=== PATIENT | female | born 2005 | race Caucasian/White ===

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

== ENCOUNTER → 2023-03-26 | Outpatient (REF) | payer OTHER ==
[2023-03-26 19:01] LABS: HCG, SERUM QUALITATIVE NEGATIVE (NEGATIVE)
== END ==
LOC: M LAB REF 16:26
PROVIDERS: ATTEND Nurse Practitioner Family
DX: N92.6 Irregular menstruation, unspecified (principal); E66.9 Obesity, unspecified

== ENCOUNTER → 2023-05-25 | Outpatient (REF) | payer OTHER ==
[2023-05-25 20:09] LABS: BASO # 0.1 10^3/uL (0.0-0.2); BASO % 0.9 % (0.0-1.0); EOS # 0.3 10^3/uL (0.0-0.5); EOS % 2.9 % (0.0-3.0); HEMATOCRIT 39.5 % (36.0-47.0); HEMOGLOBIN 12.3 g/dl (12.0-15.5); LYMPH # 3.6 10^3/uL (1.5-5.0); LYMPH % 33.9 % (24.0-44.0); MEAN CORPUSCULAR HEMOGLOBIN 23.4 pg (27.0-33.0); MEAN CORPUSCULAR HGB CONC 31.1 g/dl (32.0-36.5); MEAN CORPUSCULAR VOLUME 75.1 fl (80.0-96.0); MONO # 0.6 10^3/uL (0.0-0.8); MONO % 5.5 % (2.0-8.0); NEUTROPHILS # 5.9 10^3/uL (1.5-8.5); NEUTROPHILS % 56.4 % (36.0-66.0); PLATELET COUNT, AUTOMATED 334 10^3/uL (150-450); RED BLOOD COUNT 5.26 10^6/uL (4.00-5.40); WHITE BLOOD COUNT 10.5 10^3/uL (4.0-10.0)
== END ==
LOC: M LAB REF 19:33
PROVIDERS: ATTEND Nurse Practitioner Family
DX: E55.9 Vitamin D deficiency, unspecified (principal); D50.9 Iron deficiency anemia, unspecified

== ENCOUNTER → 2023-07-14 | Outpatient (CLI) | payer OTHER | LOC: M RAD 18:00 | PROVIDERS: ATTEND Physician Assistant | DX: M25.571 Pain in right ankle and joints of right foot (principal) ==

== ENCOUNTER 2023-08-15 11:53 | Emergency (ER) | payer OTHER ==
[~2023-08-15] VITALS: Ht 162.6 cm; Wt 129.3 kg
[2023-08-15] MEDS ORDERED: IBUPROFEN 600MG TAB PO ONE (12:30)
[2023-08-15 13:02] LABS: BASO # 0.1 10^3/uL (0.0-0.2); EOS # 0.3 10^3/uL (0.0-0.5); EOS % 4.9 % (0.0-3.0); HEMATOCRIT 39.6 % (36.0-47.0); HEMOGLOBIN 12.6 g/dl (12.0-15.5); LYMPH # 1.9 10^3/uL (1.5-5.0); LYMPH % 31.6 % (24.0-44.0); MEAN CORPUSCULAR HGB CONC 31.8 g/dl (32.0-36.5); MEAN CORPUSCULAR VOLUME 75.3 fl (80.0-96.0); MONO # 0.6 10^3/uL (0.0-0.8); MONO % 10.1 % (2.0-8.0); NEUTROPHILS # 3.1 10^3/uL (1.5-8.5); NEUTROPHILS % 52.1 % (36.0-66.0); PLATELET COUNT, AUTOMATED 246 10^3/uL (150-450); RED BLOOD COUNT 5.26 10^6/uL (4.00-5.40); WHITE BLOOD COUNT 5.9 10^3/uL (4.0-10.0)
[2023-08-15 13:30] LABS: HCG, SERUM QUALITATIVE NEGATIVE (NEGATIVE)
[2023-08-15 13:54] VITALS: BP 121/84; TEMP 97.8; O2SAT 97
== END 2023-08-15 13:55 | disposition home or self-care (01) ==
LOC: M ED 11:53
DX: N93.8 Other specified abnormal uterine and vaginal bleeding (principal); Z79.899 Other long term (current) drug therapy; Z88.2 Allergy status to sulfonamides

== ENCOUNTER 2024-04-30 14:10 | Inpatient (IN) | payer OTHER ==
[~2024-04-30] VITALS: Ht 162.6 cm; Wt 117.4 kg
[~2024-04-30 14:10] MED LIST changes: -FERR325T3; +FERR325T3 PO; +ONDA-282 PO; +ONDA-282 SL; -ONDA4TAB6 PO; -ONDA4TAB6 SL; -VITA200032; +VITA200032 PO
[2024-04-30 15:02] LABS: HEMATOCRIT 37.2 % (36.0-47.0); HEMOGLOBIN 11.5 g/dl (12.0-15.5); MEAN CORPUSCULAR HEMOGLOBIN 23.2 pg (27.0-33.0); MEAN CORPUSCULAR HGB CONC 30.9 g/dl (32.0-36.5); PLATELET COUNT, AUTOMATED 301 10^3/uL (150-450); RED BLOOD COUNT 4.96 10^6/uL (4.00-5.40); WHITE BLOOD COUNT 9.3 10^3/uL (4.0-10.0)
[2024-04-30 15:27] LABS: AMPHETAMINES LEVEL URINE NEGATIVE (NEGATIVE); BARBITURATES URINE NEGATIVE (NEGATIVE); BENZODIAZEPINES URINE NEGATIVE (NEGATIVE); CANNABINOIDS URINE NEGATIVE (NEGATIVE); COCAINE METABOLITE URINE NEGATIVE (NEGATIVE); METHADONE URINE NEGATIVE (NEGATIVE); OPIATES URINE NEGATIVE (NEGATIVE); PHENCYCLIDINE URINE NEGATIVE (NEGATIVE)
[2024-04-30 15:29] LABS: ETHYL ALCOHOL (ETHANOL) 0.006 % (0.000-0.010)
[2024-04-30 15:31] LABS: ALBUMIN 3.7 G/DL (3.2-5.2); ALKALINE PHOSPHATASE 95 U/L (46-116); ALT/SGPT 18 U/L (7.0-40); AST/SGOT 11 U/L (<34); BILIRUBIN,DIRECT < 0.1 MG/DL (<0.4); BILIRUBIN,TOTAL 0.3 MG/DL (0.3-1.2); BLOOD UREA NITROGEN 10 MG/DL (9-23); CALCIUM LEVEL 9.4 MG/DL (8.5-10.1); CARBON DIOXIDE LEVEL 26 MMOL/L (20-31); CHLORIDE LEVEL 110 MMOL/L (98-107); CREATININE FOR GFR 0.57 MG/DL (0.55-1.30); GLOMERULAR FILTRATION RATE > 60.0 (>60); GLUCOSE, FASTING 98 MG/DL (60-100); POTASSIUM SERUM 3.8 MMOL/L (3.5-5.1); SALICYLATE LEVEL < 3.0 MG/DL (<30); SODIUM LEVEL 142 MMOL/L (136-145); TOTAL PROTEIN 7.5 G/DL (5.7-8.2)
[2024-04-30 15:32] LABS: THYROID STIMULATING HORMONE 1.622 uIU/ML (0.55-4.78)
[2024-04-30] MEDS ORDERED: HOME MED LIST COMPLETE! XX SCH (16:55)
[2024-04-30] MEDS ORDERED: MAALOX 30 ML SUSP *UDC PO PRN (16:55)
[2024-04-30] MEDS ORDERED: IBUPROFEN 400MG TAB PO PRN (16:55)
[2024-04-30] MEDS ORDERED: MOM 30ML SUSPENSION UDC PO PRN (16:55)
[2024-04-30] MEDS ORDERED: ACETAMINOPHEN 325 MG TAB PO PRN (16:55)
[2024-04-30 17:16] LABS: HCG, SERUM QUALITATIVE NEGATIVE (NEGATIVE)
[2024-04-30 18:30] VITALS: BP 129/85; TEMP 97.4; O2SAT 98
[2024-05-01 06:58] VITALS: BP 126/78; TEMP 97; O2SAT 98
[2024-05-01] MEDS: lamoTRIgine 25MG TAB PO SCH (09:52)
[2024-05-01] MEDS: ARIPiprazole 2 MG TAB PO SCH (09:52)
[2024-05-01] MEDS: FERROUS SULFATE 325MG TAB PO SCH (10:58)
[2024-05-01 11:41] LABS: PERCENT SATURATION 14.5 % (13.2-45.0)
[2024-05-01 11:42] LABS: FERRITIN 34.3 NG/ML (7.3-270.7); FOLATE 19.97 NG/ML (>5.4)
[2024-05-01 14:38] VITALS: BP 129/76; TEMP 98.1; O2SAT 99
[2024-05-02 06:12] VITALS: BP 138/81; TEMP 97.4; O2SAT 100
[2024-05-02] MEDS: NICOTINE POLACRILEX 2 MG GUM PO PRN (08:14)
[2024-05-02 09:00] VITALS: BP 138/81; TEMP 97.4; O2SAT 100
[2024-05-02 15:15] VITALS: BP 131/76; TEMP 98; O2SAT 96
[2024-05-02] MEDS: diphenhydrAMINE 25MG CAP PO PRN (20:11)
[2024-05-03 06:35] VITALS: BP 130/102; TEMP 98.2; O2SAT 99
[2024-05-03] MEDS: ARIPiprazole 2 MG TAB PO SCH (08:55)
[2024-05-03] MEDS: lamoTRIgine 25MG TAB PO SCH (08:55)
[2024-05-03 15:16] VITALS: BP 141/86; TEMP 97.8; O2SAT 100
[2024-05-03] MEDS: traZODone 50 MG TAB PO PRN (20:31)
[2024-05-04 06:12] VITALS: BP 136/81; TEMP 96.2; O2SAT 98
[2024-05-04 16:26] VITALS: BP 137/89; TEMP 97.6; O2SAT 98
[2024-05-05 06:13] VITALS: BP 130/72; TEMP 97.6; O2SAT 100
[2024-05-05] MEDS ORDERED: LAMI25TA PO (07:13)
[2024-05-05] MEDS ORDERED: ABIL1TAB13 PO (07:13)
== END 2024-05-05 11:30 | disposition home or self-care (01) | DRG 753 ==
LOC: M ED 14:10 → M ED INP 16:54 → M PSY 17:49
PROVIDERS: ADMIT Psychiatry & Neurology Psychiatry; ATTEND Psychiatry & Neurology Psychiatry
DX: F31.9 Bipolar disorder, unspecified (principal); F41.1 Generalized anxiety disorder; F60.3 Borderline personality disorder; R45.851 Suicidal ideations; F17.290 Nicotine dependence, other tobacco product, uncomplicated; D50.9 Iron deficiency anemia, unspecified; J45.909 Unspecified asthma, uncomplicated; Z91.51 Personal history of suicidal behavior; Z91.52 Personal history of nonsuicidal self-harm; Z88.2 Allergy status to sulfonamides; Z83.3 Family history of diabetes mellitus; Z81.8 Family history of other mental and behavioral disorders; Z62.810 Personal history of physical and sexual abuse in childhood; Z79.899 Other long term (current) drug therapy; Z71.6 Tobacco abuse counseling

== ENCOUNTER → 2024-05-14 | Outpatient (REF) | payer OTHER, MEDICAID ==
[~2024-05-14] MED LIST changes: +ABIL1TAB11 PO; +LAMI25TA PO
== END ==
LOC: M LAB REF 16:35
PROVIDERS: ATTEND Nurse Practitioner Family
DX: F31.9 Bipolar disorder, unspecified (principal)

== ENCOUNTER → 2024-05-28 | Outpatient (CLI) | payer OTHER ==
[2024-05-28 17:22] LABS: INR 0.95; PARTIAL THROMBOPLASTIN TIME 28.5 SECONDS (24.8-34.2); PROTHROMBIN TIME 12.9 SECONDS (12.5-14.5)
== END ==
LOC: M PLALAB 14:53
PROVIDERS: ATTEND Internal Medicine Hematology
DX: Z82.49 Family history of ischemic heart disease and other diseases of the circulatory system (principal)

== ENCOUNTER → 2025-02-25 | Outpatient (CLI) | payer OTHER | LOC: M WHC 13:53 | PROVIDERS: ATTEND Nurse Practitioner Family | DX: N63.20 Unspecified lump in the left breast, unspecified quadrant (principal) ==

== ENCOUNTER → 2025-03-11 | Outpatient (CLI) | payer OTHER ==
[2025-03-11 07:42] VITALS: TEMP 98.6
[2025-03-11 08:16] VITALS: BP 114/78; O2SAT 98
== END ==
LOC: M WHCPRO 07:36
PROVIDERS: ATTEND Nurse Practitioner Family
DX: N63.21 Unspecified lump in the left breast, upper outer quadrant (principal)

== ENCOUNTER → 2025-04-02 | Outpatient (REF) | payer OTHER | LOC: M SFHCWAGY 19:47 | PROVIDERS: ATTEND Nurse Practitioner Family | DX: Z12.4 Encounter for screening for malignant neoplasm of cervix (principal) ==

== ENCOUNTER → 2025-06-10 | Outpatient (REF) | payer OTHER | LOC: M SFHCWAGY 17:03 | PROVIDERS: ATTEND Nurse Practitioner Family | DX: Z12.4 Encounter for screening for malignant neoplasm of cervix (principal) ==